=== PATIENT | male | born 2000 | race Caucasian/White ===

== ENCOUNTER 2018-12-05 09:40 | Emergency (ER) | payer SELFPAY ==
[~2018-12-05] VITALS: Wt 90.0 kg
[2018-12-05] MEDS ORDERED: TETRACAINE 0.5% 4 ML OPH LEFT EYE ONE (10:00)
[2018-12-05] MEDS ORDERED: FLUORESCEIN STRIP LEFT EYE ONE (10:00)
[2018-12-05] MEDS ORDERED: POLY10DR19 BOTH EYES (10:23)
[2018-12-05] MEDS ORDERED: OFLO5DRO46 BOTH EYES (10:24)
--- NOTE | 2018-12-05 10:54 | ERD ---
ER Documentation Chief Complaint Chief Complaint cement splashed to left eye while at work. moderate pain HPI 18-year-old male presenting with pain to left eye. Patient was working on wet cement splashed in his eye. He has pain and sensitivity to light. He denies any sick contacts or glasses. He has not applied water to his eye but no medications. Denies visual changes. Denies medical problems. NKDA. Surgical history no surgery needed social history smokes less than a pack a day. ROS All systems reviewed and are negative except as per history of present illness. Medications Home Meds Active Scripts Ofloxacin* (Ocuflox*) 0.3%-5 Ml Ophth Drops, 1 DROP BOTH EYES QID, #1 BOTTLE Prov:SUNIL ARROYO PA-C 12/05/18 Allergies Allergies: Coded Allergies: No Known Allergy (Unverified , 12/05/18) PMhx/Soc Medical and Surgical Hx: pt denies Medical Hx History of Surgery: Yes (NOSE/LEFT HAND) Hx Alcohol Use: Yes (OCCASSIONAL) Hx Substance Use: No Hx Tobacco Use: Yes Smoking Status: Current every day smoker FmHx Family History: No diabetes, No coronary disease, No other Physical Exam Vitals Vital Signs Date Temp Pulse Resp B/P (MAP) Pulse Ox O2 O2 Flow FiO2 Time Delivery Rate 12/05/18 98.0 56 18 130/72 98 09:42 (91) Physical Exam GENERAL: The patient is well-appearing, well-nourished, in no acute distress HEENT: Atraumatic. Conjunctivae are pink. Pupils equal, round, and reactive to light. There is no scleral icterus. Tympanic membranes clear bilaterally. Oropharynx clear. Injection of the left sclera. NECK: C-spine is soft and supple. There is no meningismus. There is no cervical lymphadenopathy. CHEST: Clear to auscultation bilaterally. There are no rales, wheezes or rhonchi. HEART: Regular rate and rhythm. No murmurs, clicks, rubs or gallops. Results 24 hrs Current Medications Medications Dose Sig/Belle Start Time Status Last (Trade) Ordered Route PRN Stop Time Admin Dose Reason Admin Fluorescein 1 strip ONCE ONCE 12/05/18 DC Sodium LEFT EYE 10:00 (Rrdog-X-Winy 12/05/18 10:01 p) Tetracaine 1 drop ONCE ONCE 12/05/18 DC HCl LEFT EYE 10:00 (Tetracaine 12/05/18 10:01 0.5% Steri-Unit Katherine) Procedures/MDM ER course: Tetracaine and fluorescein stain applied to left eye. Uptake noted to the inferior portion of the cornea. MDM: 18-year-old male presenting with corneal abrasion. I have low suspicion for retained foreign body. I have low suspicion for globe rupture or visual deficit. Patient is discharged with supportive medications and told to follow- up with primary care within 1 to 2 days for close evaluation. Patient is told symptoms change or worsen to return immediately to the ER. All questions answered at discharge Departure Diagnosis: Primary Impression: Chemical exposure of eye Condition: Stable Patient Instructions: Corneal Ulcer, Eye Exposure, Chemical Referrals: [facility] YOU HAVE RECEIVED A MEDICAL SCREENING EXAM AND THE RESULTS INDICATE THAT YOU DO NOT HAVE A CONDITION THAT REQUIRES URGENT TREATMENT IN THE EMERGENCY DEPARTMENT. FURTHER EVALUATION AND TREATMENT OF YOUR CONDITION CAN WAIT UNTIL YOU ARE SEEN IN YOUR DOCTORS OFFICE WITHIN THE NEXT 1-2 DAYS. IT IS YOUR RESPONSIBILITY TO MAKE AN APPOINTMENT FOR FOLOW-UP CARE. IF YOU HAVE A PRIMARY DOCTOR --you should call your primary doctor and schedule an appointment IF YOU DO NOT HAVE A PRIMARY DOCTOR YOU CAN CALL OUR PHYSICIAN REFERRAL HOTLINE AT IF YOU CAN NOT AFFORD TO SEE A PHYSICIAN YOU CAN CHOSE FROM THE FOLLOWING [facility] [address] [facility]. [facility] [address] [facility] [facility] [address] [facility] [address] [facility] [place] [address] [facility]. [facility]. [address] Additional Instructions: FOLLOW UP WITH YOUR PRIMARY CARE PHYSICIAN TOMORROW.Return to this facility if you are not improving as expected. SUNIL ARROYO PA-C December 05, 2018 10:54
== END 2018-12-05 10:34 | disposition home or self-care (01) ==
LOC: FTE 09:40
DX: S05.02XA Injury of conjunctiva and corneal abrasion without foreign body, left eye, initial encounter (principal); F17.210 Nicotine dependence, cigarettes, uncomplicated; T65.891A Toxic effect of other specified substances, accidental (unintentional), initial encounter; X58.XXXA Exposure to other specified factors, initial encounter; Y92.89 Other specified places as the place of occurrence of the external cause
CPT/HCPCS: 99283